=== PATIENT | female | born 1980 | race Two or more races ===

== ENCOUNTER 2017-06-22 19:59 | Emergency (ER) | payer BC, OTHER ==
[~2017-06-22] VITALS: Ht 157.5 cm; Wt 61.2 kg
--- NOTE | 2017-06-22 20:09 | NUR ---
bbra 58; etoh intoxication, found sitting at a bar, no trauma noted, nad noted, vss, resp even and unlabored, pt was put on monitor and hospital md veronica at bs.
--- NOTE | 2017-06-22 21:26 | NUR ---
Patient is resting comfortably in bed with eyes closed. Easily aroused. VSS
[2017-06-22 22:09] LABS: BASOPHILS # (AUTO) 0.1 /CMM (0.0-0.2); BASOPHILS % (AUTO) 0.9 % (0.0-2.0); EOSINOPHILS % (AUTO) 1.8 % (0.0-6.0); HEMATOCRIT 35 % (33-45); HEMOGLOBIN 12.1 g/dL (11.5-14.8); LYMPHOCYTES # (AUTO) 2.7 /CMM (0.8-4.8); LYMPHOCYTES % (AUTO) 37.1 % (20.0-44.0); MEAN CORPUSCULAR HGB CONC 34 g/dl (31.0-36.0); MEAN CORPUSCULAR VOLUME 85 fL (82-100); MONOCYTES # (AUTO) 0.4 /CMM (0.1-1.30); MONOCYTES % (AUTO) 5.9 % (2.0-12.0); NEUTROPHILS # (AUTO) 3.9 /CMM (1.8-8.9); NEUTROPHILS % (AUTO) 54.3 % (43.0-81.0); PLATELET COUNT (AUTO) 347 /CMM (150-450); RDW COEFFICIENT OF VARIATION 13.6 (11.5-15.0); RED BLOOD CELL COUNT(AUTO) 4.16 MIL/uL (4.0-5.2); WHITE BLOOD COUNT (AUTO) 7.3 K/uL (4.3-11.0)
[2017-06-22 22:20] LABS: CALCIUM, SERUM 8.2 mg/dL (8.5-10.1); CREATININE 0.5 mg/dL (0.6-1.3); POTASSIUM 3.6 mmol/L (3.5-5.1)
--- NOTE | 2017-06-22 22:36 | NUR ---
Patient is resting comfortably in bed with eyes closed. Easily aroused. VSS
[2017-06-22 23:01] LABS: THYROID STIMULATING HORMONE 2.848 uIU/mL (0.358-3.74)
[2017-06-22 23:04] LABS: ALBUMIN 3.7 g/dL (3.4-5.0); BILIRUBIN,DIRECT 0.1 mg/dL (0.0-0.2); BILIRUBIN,TOTAL 0.2 mg/dL (0.2-1.0); SALICYLATE 0.8 mg/dL (2.8-20.0); TOTAL PROTEIN, SERUM 7.2 g/dL (6.4-8.2)
--- NOTE | 2017-06-23 00:59 | NUR ---
Patient is resting comfortably in bed with eyes closed. Easily aroused. VSS
--- NOTE | 2017-06-23 02:30 | NUR ---
PT REMOVED IV. Catheter intact and site benign. Pressure and 4x4 applied to site. No bleeding noted.
--- NOTE | 2017-06-23 02:31 | NUR ---
PT ADRY. MICHELS. INFORMED DR. LEYVA.
[2017-06-23 04:22] VITALS: BP 121/72
--- NOTE | 2017-06-23 04:23 | NUR ---
Patient discharged to home in stable condition. Written and verbal after care instructions given. Patient verbalizes understanding of instruction.IV removed. Catheter intact and site benign. Pressure and 4x4 applied to site. No bleeding noted. PT ambulatory with a steady gait VITAL SIGNS WITHIN NORMAL LIMITS.
== END 2017-06-23 04:23 | disposition home or self-care (01) ==
LOC: ER 20:01
DX: F10.229 Alcohol dependence with intoxication, unspecified (principal); G93.40 Encephalopathy, unspecified; R51 Headache
CPT/HCPCS: 36415; 70450-TC; 80048-TC; 80076-TC; 80305; 84443-TC; 84703-TC; 85025-TC; A4606; G0480; Z7610

== ENCOUNTER 2021-10-14 09:25 | Emergency (ER) | payer SELFPAY ==
[~2021-10-14] VITALS: Ht 157.5 cm; Wt 65.8 kg
--- NOTE | 2021-10-14 09:31 | NUR ---
pt [id number], bystander called. was sleeping in the sidewalks, appears intoxicated w/ strong etoh smell, vss. 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 1:1 sitter at bedside. awaiting md cherry. will continue to monitor.
[2021-10-14] MEDS ORDERED: HALOPERIDOL LACTATE INJ 5 MG/ML VIAL ONE (09:49)
--- NOTE | 2021-10-14 09:52 | NUR ---
patient agitated,verbally abusive to er staff. dr lozano aware. medicated as ordered. see emar.
[2021-10-14] MEDS ORDERED: IV NS 0.9% 1,000 ML BAG IV ONE (10:00)
[2021-10-14] MEDS ORDERED: HALOPERIDOL LACTATE INJ 5 MG/ML VIAL IM ONE (10:00)
--- NOTE | 2021-10-14 10:00 | NUR ---
SALINE LOCK ESTABLISHED, BLOOD DRAWN, AND SENT TO LAB
--- NOTE | 2021-10-14 10:05 | NUR ---
URINE COLLECTED AND SENT TO LAB
[2021-10-14 11:43] LABS: BASOPHILS # (AUTO) 0.1 K/uL (0.0-0.2); BASOPHILS % (AUTO) 0.9 % (0.0-2.0); EOSINOPHILS % (AUTO) 1.3 % (0.0-6.0); HEMATOCRIT 41 % (33-45); HEMOGLOBIN 14.1 g/dL (11.5-14.8); LYMPHOCYTES # (AUTO) 2.3 K/uL (0.8-4.8); LYMPHOCYTES % (AUTO) 34.4 % (20.0-44.0); MEAN CORPUSCULAR HGB CONC 34 g/dl (31.0-36.0); MEAN CORPUSCULAR VOLUME 89 fL (82-100); MONOCYTES # (AUTO) 0.3 K/uL (0.1-1.30); MONOCYTES % (AUTO) 4.5 % (2.0-12.0); NEUTROPHILS # (AUTO) 3.9 K/uL (1.8-8.9); NEUTROPHILS % (AUTO) 58.9 % (43.0-81.0); PLATELET COUNT (AUTO) 329 K/uL (150-450); RED BLOOD CELL COUNT(AUTO) 4.67 MIL/uL (4.0-5.2); WHITE BLOOD COUNT (AUTO) 6.6 K/uL (4.3-11.0)
[2021-10-14 11:50] LABS: BILIRUBIN,URINE NEGATIVE (NEGATIVE); LEUKOCYTE ESTERASE ,URINE NEGATIVE (NEGATIVE); NITRITE, URINE NEGATIVE (NEGATIVE); PROTEIN,URINE NEGATIVE (NEGATIVE); UGLUCOSE NEGATIVE (NEGATIVE); UROBILINOGEN,URINE 0.2 EU/dL (0.2)
[2021-10-14 11:56] LABS: COLOR,URINE STRAW (YELLOW)
[2021-10-14 12:09] LABS: ALANINE AMINOTRANSFERASE 20 U/L (12-78); ALBUMIN 4.2 g/dL (3.4-5.0); ALCOHOL, BLOOD 384 mg/dL (0-0); ALKALINE PHOSPHATASE 70 U/L (46-116); ASPARTATE AMINOTRANSFERASE 19 U/L (15-37); BILIRUBIN,DIRECT 0.1 mg/dL (0.0-0.2); BILIRUBIN,TOTAL 0.2 mg/dL (0.2-1.0); CALCIUM, SERUM 8.3 mg/dL (8.5-10.1); CARBON DIOXIDE 29 mmol/L (21-32); CHLORIDE 106 mmol/L (98-107); CREATININE 0.6 mg/dL (0.6-1.3); GLUCOSE 94 mg/dL (74-106); POTASSIUM 3.8 mmol/L (3.5-5.1); SODIUM SERUM 144 mmol/L (136-145); TOTAL PROTEIN, SERUM 8.1 g/dL (6.4-8.2); UREA NITROGEN, BLOOD 8 mg/dL (7-18)
[2021-10-14 12:24] LABS: ACETAMINOPHEN < 10 ug/ml (10-30)
--- NOTE | 2021-10-14 15:25 | NUR ---
MOTHER CALLED AND WAS NOTIFIED THAT SHE WILL PHARMACY SCHEDULER THE PT WITH AN ETA OF [id number]
--- NOTE | 2021-10-14 17:27 | NUR ---
IV removed. Catheter intact and site benign. Pressure and 4x4 applied to site. No bleeding noted.Patient discharged to home in stable condition. Written and verbal after care instructions given. Patient verbalizes understanding of instruction.
[2021-10-14 17:32] VITALS: BP 109/64
== END 2021-10-14 17:32 | disposition home or self-care (01) ==
LOC: ER 09:29
DX: F10.129 Alcohol abuse with intoxication, unspecified (principal); Y90.8 Blood alcohol level of 240 mg/100 ml or more; R46.89 Other symptoms and signs involving appearance and behavior; R45.1 Restlessness and agitation
CPT/HCPCS: 99291; 96372; 96360; 85025; 80048; 80076; 81003; 36415; 87426; 80143; 80320; 80307; J1630; J7030; C9803; G0480